=== PATIENT | female | born 1980 | race Caucasian/White ===

== ENCOUNTER 2020-12-24 18:08 | Emergency (ER) | payer MEDICAID ==
[~2020-12-24] VITALS: Ht 167.6 cm; Wt 54.5 kg
[2020-12-24 18:12] VITALS: BP 126/83
[2020-12-24] MEDS ORDERED: zoloft (18:12)
[2020-12-24 20:00] LABS: CLARITY URINE CLEAR (CLEAR); COLOR URINE YELLOW (YELLOW); KETONES URINE NEGATIVE (NEGATIVE); LEUKOCYTE ESTERASE URINE 2+ (NEGATIVE); NITRITE URINE NEGATIVE (NEGATIVE); OCCULT BLOOD URINE NEGATIVE (NEGATIVE); PROTEIN URINE NEGATIVE (NEGATIVE); SPECIFIC GRAVITY URINE 1.006 (1.005-1.030); UROBILINOGEN URINE 0.2 E.U./dL (0.2-1.0)
[2020-12-24] MEDS ORDERED: AZITHROMYCIN 500 MG TABLET PO ONE (20:00)
[2020-12-24] MEDS ORDERED: CEFTRIAXONE SODIUM 250 MG/VIAL IM ONE (20:00)
[2020-12-24] MEDS ORDERED: FLUCONAZOLE 150MG TABLET PO ONE (20:00)
[2020-12-24] MEDS ORDERED: LIDOCAINE HCL 1% 20ML VIAL (Pyxis) INJ INFIL ONE (20:15)
[2020-12-24] MEDS ORDERED: ONDANSETRON 4MG ODT PO ONE (21:15)
[2020-12-24 21:18] LABS: HCG SCREEN NEGATIVE
[2020-12-24] MEDS ORDERED: METR500T MT (21:50)
== END 2020-12-24 22:24 | disposition home or self-care (01) ==
LOC: ER 18:08
DX: N76.0 Acute vaginitis (principal); F41.9 Anxiety disorder, unspecified; F32.9 Major depressive disorder, single episode, unspecified; F15.10 Other stimulant abuse, uncomplicated; F12.10 Cannabis abuse, uncomplicated; Z88.0 Allergy status to penicillin
CPT/HCPCS: 81003; 81025; 84703; 96372; 99284; J0696; J3490; Q0162; Z7610